=== PATIENT | female | born 1990 | race African-American/Black ===

== ENCOUNTER 2021-10-11 20:34 | Emergency (ER) | payer OTHER ==
[~2021-10-11] VITALS: Ht 160 cm; Wt 88.0 kg
[2021-10-11 20:40] VITALS: BP_SYST 104; BP_SYST 112; BP_SYST 113; BP_DIAS 65; BP_DIAS 66; BP_DIAS 75
--- NOTE | 2021-10-11 20:44 | ED Syncope ---
General Stated Complaint: SYNCOPE History of Present Illness Date Seen by Provider: Oct 11, 2021 Time Seen by Provider: 20:30 Initial Comments Patient to the ER by EMS from home with chief complaint that she is feeling dehydrated she been doing some keto dieting and took 100 mg trazodone sleeping pill and 20 minutes later felt lightheaded, not warm flushed in her face and then passed out twice in her bed. She did not hit her head. She does not recall regaining consciousness the first time. She is not on blood thinners. S he is not having any chest pains palpitations weakness fevers chills cough shortness of air. She is not prone to syncopal episodes. She recently started dieting on a keto diet and feels that this may have contributed to it. EMS remarks she had 103 systolic blood pressure when they arrived. They said it was slowly getting better on route. Patient does not take any medicines follow with a primary care doctor or have any other significant medical history other than some tubes tied, . Last menstrual period was 6 weeks ago. She went to the doctor at [facility] on 18 September about her missed period and had a negative test but never followed up for any further work-up. Allergies and Home Medications Allergies Coded Allergies: No Known Drug Allergies (Unverified , 10/11/21) Patient Home Medication List Home Medication List Reviewed: Yes Review of Systems Constitutional: No chills, No fever, No malaise EENTM: No ear discharge, No ear pain Respiratory: No cough, No short of breath Cardiovascular: No chest pain, No edema, No Hx of Intervention, No palpitations Gastrointestinal: No abdominal pain, No constipation, No diarrhea, No nausea Genitourinary: No discharge, No dysuria : No Control/STD Prophylaxis: Other (Tubal ligation) Musculoskeletal: No back pain, No joint pain All Other Systems Reviewed Negative Unless Noted: Yes Past Zyvwkak-Efueft-Ttfuyn Hx Patient Social History Tobacco Use?: No Use of E-Cig and/or Vaping dev: No Physical Exam Vital Signs Vital Signs - First Documented 10/11/21 20:34 Temp 36.8 Pulse 77 Resp 16 B/P (MAP) 108/66 (80) Pulse Ox 99 O2 Delivery Room Air Capillary Refill : Height, Weight, BMI Height: '" Weight: lbs. oz. 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 Norm as Tested Cranial Nerves: Normal Hearing, Normal Speech, PERRL Coordination/Gait: Normal Gait Motor/Sensory: No Motor Deficit, No Sensory Deficit Progress/Results/Core Measures Results/Orders Lab Results Laboratory Tests Test 10/11/21 20:45 Range/Units White Blood Count 12.7 H 4.3-11.0 10^3/uL Red Blood Count 4.78 3.80-5.11 10^6/uL Hemoglobin 13.5 11.5-16.0 g/dL Hematocrit 41 35-52 % Mean Corpuscular Volume 85 80-99 fL Mean Corpuscular Hemoglobin 28 25-34 pg Mean Corpuscular Hemoglobin Concent 33 32-36 g/dL Red Cell Distribution Width 12.4 10.0-14.5 % Platelet Count 356 130-400 10^3/uL Mean Platelet Volume 8.9 L 9.0-12.2 fL Immature Granulocyte % (Auto) 1 % Neutrophils (%) (Auto) 64 42-75 % Lymphocytes (%) (Auto) 27 12-44 % Monocytes (%) (Auto) 6 0-12 % Eosinophils (%) (Auto) 2 0-10 % Basophils (%) (Auto) 1 0-10 % Neutrophils # (Auto) 8.1 H 1.8-7.8 10^3/uL Lymphocytes # (Auto) 3.5 1.0-4.0 10^3/uL Monocytes # (Auto) 0.8 0.0-1.0 10^3/uL Eosinophils # (Auto) 0.2 0.0-0.3 10^3/uL Basophils # (Auto) 0.1 0.0-0.1 10^3/uL Immature Granulocyte # (Auto) 0.1 0.0-0.1 10^3/uL Urine Color YELLOW Urine Clarity CLEAR Urine pH 6.0 5-9 Urine Specific [place] 1.020 1.016-1.022 Urine Protein NEGATIVE NEGATIVE Urine Glucose (UA) NEGATIVE NEGATIVE Urine Ketones NEGATIVE NEGATIVE Urine Nitrite NEGATIVE NEGATIVE Urine Bilirubin NEGATIVE NEGATIVE Urine Urobilinogen 1.0 < = 1.0 MG/DL Urine Leukocyte Esterase NEGATIVE NEGATIVE Urine RBC (Auto) 1+ H NEGATIVE Urine RBC 2-5 H /HPF Urine WBC 0-2 /HPF Urine Squamous Epithelial Cells 0-2 /HPF Urine Renal Epithelial Cells NONE /HPF Urine Crystals NONE /LPF Urine Bacteria NEGATIVE /HPF Urine Casts NONE /LPF Urine Mucus NEGATIVE /LPF Urine Culture Indicated NO Sodium Level 139 135-145 MMOL/L Potassium Level 3.6 3.6-5.0 MMOL/L Chloride Level 107 98-107 MMOL/L Carbon Dioxide Level 23 21-32 MMOL/L Anion Gap 9 5-14 MMOL/L Blood Urea Nitrogen 10 7-18 MG/DL Creatinine 0.74 0.60-1.30 MG/DL Estimat Glomerular Filtration Rate 110 BUN/Creatinine Ratio 14 Glucose Level 114 H 70-105 MG/DL Calcium Level 8.8 8.5-10.1 MG/DL Corrected Calcium 8.6 8.5-10.1 MG/DL Total Bilirubin 0.3 0.1-1.0 MG/DL Aspartate Amino Transf (AST/SGOT) 22 5-34 U/L Alanine Aminotransferase (ALT/SGPT) 25 0-55 U/L Alkaline Phosphatase 54 40-136 U/L Troponin I < 0.028 <0.028 NG/ML Total Protein 7.4 6.4-8.2 GM/DL Albumin 4.2 3.2-4.5 GM/DL My Orders Orders - ANNAMARIE,MACY J Orthostatic Vital Signs (Adult (10/11/21 20:40) Cbc With Automated Diff (10/11/21 20:40) Comprehensive Metabolic Panel (10/11/21 20:40) Troponin I (10/11/21 20:40) Ekg Tracing (10/11/21 20:40) Continuous Ekg Monitoring (10/11/21 20:40) Ed Iv/Invasive Line Start (10/11/21 20:40) Lactated Ringers (Lr 1000 Ml Iv Solution (10/11/21 20:45) Ua Culture If Indicated (10/11/21 20:40) Urine Bedside (10/11/21 20:40) Medications Given in ED Current Medications Medications Dose Ordered Sig/Charlie Route Start Time Stop Time Status Last Admin Dose Admin Lactated Ringer's 1,000 ml @ 0 mls/hr Q0M ONCE IV 10/11/21 20:45 10/11/21 20:46 DC 10/11/21 20:47 0 MLS/HR Vital Signs/I&O 10/11/21 10/11/21 20:34 20:40 Temp 36.8 Pulse 77 70 80 86 Resp 16 B/P (MAP) 108/66 (80) 104/66 (79) 112/65 (81) 113/75 (88) Pulse Ox 99 O2 Delivery Room Air Progress Progress Note #1: Time: 20:44 Progress Note Neurologically intact with no red flag signs. Suspect vasovagal syncope from dehydration, dieting and trazodone. We will give her a liter of fluids do some orthostatic vital signs EKG labs. Urinalysis. Progress Note #2: Time: 21:07 Progress Note Orthostatic vital signs unremarkable. No anemia. Patient resting comfortably. Progress Note #3: Time: 21:28 Progress Note Patient feels okay. Labs unremarkable. -2 points [place] Syncope Risk Score. Very low risk; 0.7% risk of 30-day serious adverse event. Initial ECG Impression Date: Oct 11, 2021 Initial ECG Impression Time: 21:02 Initial ECG Rate: 64 Initial ECG Rhythm: Normal Sinus Initial ECG Intervals: Normal Initial ECG Impression: Normal Comment Normal sinus rhythm without clinically relevant ST changes. Departure Impression Primary Impression: Vasovagal syncope Disposition: 01 HOME, SELF-CARE Condition: Stable Departure-Patient Inst. Decision time for Depature: 21:29 Ref[place]: [facility] [place] Instructions: Syncope (Fainting) (DC) Add. Discharge Instructions: You had syncope because you are dehydrated and your combination of medication and diet have also contributed to this. I would recommend that you cut your trazodone in half or avoid using it if you do not need it for now. Drink plenty of fluids. Make a follow-up appointment with your primary care doctor in the next 2 to 4 weeks to discuss this. Return to the ER if you are having chest pain, palpitations or further passing out episodes. MACY DE LUNA Oct 11, 2021 20:44
[2021-10-11] MEDS ORDERED: LACTATED RINGERS 1,000 ML IV ONE (20:45)
[2021-10-11 20:55] LABS: BILIRUBIN,URINE NEGATIVE (NEGATIVE); CLARITY,URINE CLEAR; COLOR,URINE YELLOW; GLUCOSE, URINE (UA) NEGATIVE (NEGATIVE); KETONES,URINE NEGATIVE (NEGATIVE); LEUKOCYTE ESTERASE ,URINE NEGATIVE (NEGATIVE); NITRITE,URINE NEGATIVE (NEGATIVE); PROTEIN,URINE NEGATIVE (NEGATIVE)
[2021-10-11 21:00] LABS: BASOPHILS # (AUTO) 0.1 10^3/uL (0.0-0.1); BASOPHILS % (AUTO) 1 % (0-10); EOSINOPHILS # (AUTO) 0.2 10^3/uL (0.0-0.3); EOSINOPHILS % (AUTO) 2 % (0-10); HEMATOCRIT 41 % (35-52); HEMOGLOBIN 13.5 g/dL (11.5-16.0); LYMPHOCYTES # (AUTO) 3.5 10^3/uL (1.0-4.0); LYMPHOCYTES % (AUTO) 27 % (12-44); MEAN CORPUSCULAR HEMOGLOBIN 28 pg (25-34); MEAN CORPUSCULAR HGB CONC 33 g/dL (32-36); MEAN CORPUSCULAR VOLUME 85 fL (80-99); MEAN PLATELET VOLUME 8.9 fL (9.0-12.2); MONOCYTES # (AUTO) 0.8 10^3/uL (0.0-1.0); MONOCYTES % (AUTO) 6 % (0-12); NEUTROPHILS # (AUTO) 8.1 10^3/uL (1.8-7.8); NEUTROPHILS % (AUTO) 64 % (42-75); PLATELET COUNT 356 10^3/uL (130-400); WHITE BLOOD COUNT 12.7 10^3/uL (4.3-11.0)
[2021-10-11 21:08] LABS: BACTERIA,URINE NEGATIVE /HPF; SQUAMOUS EPITHELIAL CELL,UR 0-2 /HPF; WBC,URINE 0-2 /HPF
[2021-10-11 21:11] LABS: ALBUMIN 4.2 GM/DL (3.2-4.5); CHLORIDE 107 MMOL/L (98-107); POTASSIUM 3.6 MMOL/L (3.6-5.0); SODIUM 139 MMOL/L (135-145)
[2021-10-11 21:12] LABS: CALCIUM 8.8 MG/DL (8.5-10.1)
[2021-10-11 21:14] LABS: GLUCOSE 114 MG/DL (70-105); TOTAL PROTEIN 7.4 GM/DL (6.4-8.2)
[2021-10-11 21:15] LABS: BILIRUBIN,TOTAL 0.3 MG/DL (0.1-1.0); CARBON DIOXIDE 23 MMOL/L (21-32)
[2021-10-11 21:17] LABS: ALKALINE PHOSPHATASE 54 U/L (40-136); CREATININE SERUM 0.74 MG/DL (0.60-1.30); GFR ESTIMATED 110
[2021-10-11 21:18] LABS: BUN/CREATININE RATIO 14
[2021-10-11 21:20] LABS: ALANINE AMINOTRANSFERASE 25 U/L (0-55)
[2021-10-11 21:32] VITALS: BP 99/53
== END 2021-10-11 21:34 | disposition home or self-care (01) ==
LOC: ER 20:38
DX: R55 Syncope and collapse (principal)
CPT/HCPCS: 36415; 80053; 81000; 84484; 84703; 85025; 93005